=== PATIENT | male | born 1955 | race Caucasian/White ===

== ENCOUNTER 2023-01-22 23:15 | Emergency (ER) | payer OTHER, MEDICAID ==
[~2023-01-22] VITALS: Ht 160 cm; Wt 70.3 kg
[2023-01-22 23:18] VITALS: BP 160/90
--- NOTE | 2023-01-22 23:20 | NUR ---
TO LOBBY A/W BED AMBULATORY
--- NOTE | 2023-01-23 00:08 | NUR ---
SEEN AND EXAMINED BY RAIMUNDO
[2023-01-23] MEDS ORDERED: KETOROLAC 30 MG/ML VIAL IM ONE (00:15)
[2023-01-23] MEDS ORDERED: MORPHINE SULFATE 4 MG/ML SYR IM ONE (00:15)
--- NOTE | 2023-01-23 00:25 | NUR ---
MEDICATED PER [facility] ORDER, TOLERATED WELL.
[2023-01-23] MEDS ORDERED: NAPR-54 PO (00:57)
[2023-01-23] MEDS ORDERED: AMOX-1230 PO (00:57)
[2023-01-23 01:15] VITALS: BP 129/81
--- NOTE | 2023-01-23 01:15 | NUR ---
Patient discharged with v/s stable. Written and verbal after care instructions given and explained. Patient alert, oriented and verbalized understanding of instructions. Ambulatory with steady gait. All questions addressed prior to discharge. ID band removed. Patient advised to follow up with PMD. Rx of AMOX-CLAV,NAPROSYN given. Patient educated on indication of medication including possible reaction and side effects. Opportunity to ask questions provided and answered.
== END 2023-01-23 01:15 | disposition home or self-care (01) ==
LOC: MED 23:15
DX: K04.7 Periapical abscess without sinus (principal)
CPT/HCPCS: 96372; 99284; J1885; J2270